=== PATIENT | male | born 1960 | race Caucasian/White ===

== ENCOUNTER 2018-03-17 14:18 | Inpatient (IN) | payer OTHER ==
--- NOTE | 2018-03-17 15:13 | ED ---
Abdominal Pain/Male - HPI Summary HPI Summary: Pt is a 57 y/o M presenting to the ED with a chief complaint of abd pain in the RUQ onset about 2 weeks ago. The pt denies vomiting, diarrhea, hematuria, chest pain, or current heart problems. The pt reports mild constipation. The pt smokes cigars, drinks 6-8 cups of coffee a day, and does not drink alcohol. - History of Current Complaint Chief Complaint: EDAbdPain Stated Complaint: CHEST PAIN Time Seen by Provider: 03/17/18 14:53 Hx Obtained From: Patient Onset/Duration: Gradual Onset, Lasting Weeks, Still Present Timing: Constant Severity Initially: Mild Severity Currently: Mild Pain Intensity: 2 Pain Scale Used: 0-10 Numeric Location: Discrete At: RUQ Radiates: Yes Radiates to: Chest Character: Cramping Aggravating Factor(s): Nothing Alleviating Factor(s): Nothing Associated Signs And Symptoms: Positive: Constipation. Negative: Chest Pain, Urinary Symptoms, Vomiting, Diarrhea - Allergies/Home Medications Allergies/Adverse Reactions: Allergies Allergy/AdvReac Type Severity Reaction Status Date / Time morphine Allergy Rash Verified 03/17/18 14:33 Home Medications: Home Medications Atorvastatin* [Lipitor*] 80 mg PO 1700 03/17/18 [History Confirmed 03/17/18] metFORMIN* [Glucophage 1000 MG TAB *] 1,000 mg PO BID 03/17/18 [History Confirmed 03/17/18] PMH/Surg Hx/FS Hx/Imm Hx Previously Healthy: No Endocrine/Hematology History: Reports: Hx Diabetes Cardiovascular History: Reports: Hx Hypercholesterolemia, Hx Hypertension - not taking medication currently Respiratory History: Denies: Other Respiratory Problems/Disorders Musculoskeletal History: Reports: Hx Back Problems - chronic back pain Sensory History: Reports: Hx Contacts or Glasses Opthamlomology History: Reports: Hx Contacts or Glasses - Surgical History Surgery Procedure, Year, and Place: 4 back surgeries. arm surgery Infectious Disease History: No Infectious Disease History: Reports: History Other Infectious Disease Denies: Traveled Outside the [place] in Last 30 Days - Family History Known Family History: Negative: Hypertension, Renal Disease - Social History Alcohol Use: None Substance Use Type: Reports: None Substance Use Comment - Amount & Last Used: hydrocodone Smoking Status (MU): Current Every Day Smoker Type: Cigars Amount Used/How Often: 5 cigars per day Have You Smoked in the Last Year: Yes Review of Systems Negative: Fever Negative: Chest Pain Positive: Other - constipation. Negative: Vomiting, Diarrhea Negative: hematuria All Other Systems Reviewed And Are Negative: Yes Physical Exam - Summary Physical Exam Summary: Appearance: Well appearing, no pain distress Skin: warm, dry, reflects adequate perfusion Head/face: normal Eyes: EOMI, DUNG ENT: normal Neck: supple, non-tender Respiratory: CTA, breath sounds present Cardiovascular: RRR, pulses symmetrical Abdomen: RUQ tenderness Musculoskeletal: normal, strength/ROM intact Neuro: normal, sensory motor intact, A&Ox3 Triage Information Reviewed: Yes Vital Signs On Initial Exam: Initial Vitals Temp Pulse Resp BP Pulse Ox 97.5 F 104 16 173/96 97 03/17/18 14:28 03/17/18 14:28 03/17/18 14:28 03/17/18 14:28 03/17/18 14:28 Vital Signs Reviewed: Yes Diagnostics - Vital Signs Vital Signs Temp Pulse Resp BP Pulse Ox 03/17/18 14:28 97.5 F 104 16 173/96 97 - Laboratory Result Diagrams: 03/17/18 14:36 03/17/18 14:36 Lab Statement: Any lab studies that have been ordered have been reviewed, and results considered in the medical decision making process. - Radiology Chest x-ray Radiology Interpretation Completed By: Radiologist Summary of Radiographic Findings: No active cardiopulmonary disease. ED physician has reviewed this report. - EKG 1507 Cardiac Rate: NL - 96bpm EKG Rhythm: Sinus Rhythm ST Segment: Normal Ectopy: None Abdominal Pain Fem Course/Dx - Course Course Of Treatment: Pt is a 57 y/o M presenting to the ED with a chief complaint of abd pain in the RUQ onset about 2 weeks ago. The pt denies vomiting , diarrhea, hematuria, chest pain, or current heart problems. The pt reports mild constipation. The pt smokes cigars, drinks 6-8 cups of coffee a day, and does not drink alcohol. Bloodwork/UA obtained. Chest x-ray reveals no active cardiopulmonary disease. Ultrasound of gallbladder reveals "HEPATOMEGALY. MULTIPLE SMALL GALLBLADDER WALL POLYPS." . EKG shows NSR at 96bpm. Patient will by admitted to Dr. Lyons, hospitalist, at 1607. Additionally Dr. Blanchard, cardiology, was contacted at 1615, He has agreed to come see the patient. - Diagnoses Differential Diagnosis/HQI/PQRI: ACS, AMI, Gall Bladder Disease, Ureteral Stone Provider Diagnoses: ACS (acute coronary syndrome), Non-STEMI (non-ST elevated myocardial infarction ) - Provider Notifications Discussed Care Of Patient With: Melecio Lynos - hospitalist Time Discussed With Above Provider: 16:07 Instructed by Provider To: Admit As Inpatient - Critical Care Time Critical Care Time: 30-74 min Discharge - Sign-Out/Discharge Documenting (check all that apply): Patient Departure - admit - Discharge Plan Condition: Stable Disposition: ADMITTED TO [facility] - Billing Disposition and Condition Condition: STABLE Disposition: Admitted to [facility] - Attestation Statements Document Initiated by Scribe: Yes Documenting Scribe: Keisha Baptitse Provider For Whom Elizabeth is Documenting (Include Credential): Roberto Carlos Vinson MD. Scribe Attestation: Keisha Hensley, scribed for Roberto Carlos Vinson MD. on 03/17/18 at 1709. Scribe Documentation Reviewed: Yes Provider Attestation: The documentation as recorded by the scribeKeisha accurately reflects the service I personally performed and the decisions made by Roberto Carlos schreiber MD. Status of Scribe Document: Viewed
[2018-03-17 15:35] LABS: ABS Basophils 0.1 10^3/ul (0-0.2); ABS Eosinophils 0.1 10^3/ul (0-0.6); ABS Lymphocytes 1.4 10^3/ul (1.0-4.8); ABS Monocytes 0.6 10^3/ul (0-0.8); ABS Neutrophils 7.7 10^3/ul (1.5-7.7); ABS Nucleated RBC 0 10^3/ul; Hematocrit 49 % (42-52); Hemoglobin 17.1 g/dl (14.0-18.0); Lymphocyte % 14.3 %; Mean Corpuscular HGB Conc 35 g/dl (31-36); Mean Corpuscular Hemoglobin 32 pg (27-31); Mean Corpuscular Volume 92 fL (80-94); Mean Platelet Volume 8.1 fL (7.4-10.4); Nucleated Red Blood Cells % 0; Platelet Count 251 10^3/ul (150-450); Red Blood Count 5.34 10^6/ul (4.00-5.40); Red Cell Distribution Width 14 % (10.5-15); White Blood Count 9.9 10^3/ul (3.5-10.8)
[2018-03-17 15:45] LABS: Activated Partial Thrombo Time 31.5 seconds (26.0-36.3); INR 0.89 (0.77-1.02)
[2018-03-17 15:52] LABS: Albumin 3.4 g/dL (3.2-5.2); BUN/Creatinine Ratio 13.2 (8-20); Calcium 8.8 mg/dL (8.6-10.3); Globulin 3.3 g/dL (2-4); Potassium 3.9 mmol/L (3.5-5.0); Total Bilirubin 0.4 mg/dL (0.2-1.0); Total Protein 6.7 g/dL (6.4-8.9)
[2018-03-17] MEDS ORDERED: Aspirin 81 mg CHEW TAB* 81 MG TAB.CHEW ONE (16:04)
[2018-03-17] MEDS ORDERED: Aspirin 81 mg CHEW TAB* 81 MG TAB.CHEW PO ONE (16:05)
[2018-03-17] MEDS ORDERED: Heparin for STEMI(*) 5,000 UNITS/ML 1 ML VIAL IV ONE ×2 (16:05→16:27)
[2018-03-17] MEDS ORDERED: Heparin DRIP 25,000 UNITS(*) 25,000 UNITS/500 ML BAG ONE (16:27)
[2018-03-17] MEDS: Heparin VIAL(*) 5000 UNITS/ML VIAL (FIVE THOUSAND) IV SCH ×2 (16:29→22:58)
[2018-03-17] MEDS: Heparin DRIP 25,000 UNITS(*) 25,000 UNITS/500 ML BAG IV SCH (16:30)
[2018-03-17] MEDS ORDERED: Dextrose 50% Syringe 50 ML* 25 GM/50 ML SYRINGE IV PUSH PRN (16:51)
--- NOTE | 2018-03-17 17:00 | ADMNOTE ---
Subjective Date of Service: 03/17/18 Interval History: HISTORY & PHYSICAL: CC: epigastric pain HPI: patient is 57 year old man w/ diabetes type 2, HTN, HLD, who has had intermittent epigastric pain for 2 weeks. The pain can be severe, mainly occurs at night, worse with eating. He denies exertional abdominal or chest pain. Denies N/V, no palpitations. Pain was very severe last night, led him to come to ER. Pain not responding to Tums, colace. A hot bath seems to relieve pain. Pain is subxyphoid, radiates across abdomen bilat. No radiation to neck/arms. The pain feels like a cramp. Family History: Findings - Father of lung cancer, mother alive w/ diabetes , grandmother had CHF. 4 siblings [place] Social History: Findings - Disabled counseling specialist, , 4 children, smokes 3-4 packs cigarillos/day, no alcohol or drug use. Past Medical History: Findings - Type 2 diabetes, HTN, HLD, micro-hematuria, PSH : lumbar surgery X4 Review of Systems - Measurements Intake and Output: Intake and Output Last 24 Hours 03/15/18 03/16/18 03/17/18 03/18/18 06:59 06:59 06:59 06:59 Weight 95.254 kg - Review of Systems Constitutional Symptoms: Positive: Weight Loss Negative: Fatigue Dermatology: Positive: Normal HEENT: Positive: Normal Eyes: Positive: Normal Thyroid: Positive: Normal Pulmonary: Positive: Normal Negative: Wheezing, Respiratory Distress Cardiology: Positive: Chest Pain Negative: Shortness of Breath, Palpitations, Swelling of Ankles, Edema, Syncope, Proximal NocturnalDyspnea Gastroenterology: Positive: Abdominal Pain, Indigestion, Heartburn Negative: Nausea, Vomiting, Diarrhea, Blood in Stools, Change in Bowel Habits , Melena Genital - Urinary: Positive: Hematuria Negative: Dysuria, Nocturia Genitourinary - Male: Negative: Prostatism Musculoskeletal: Negative: Joint Pain Endocrinology: Positive: Diabetes Mellitus Negative: Thyroid Problems, Hyperglycemia, Diabetic Foot Ulcers Hematologic/Lymphatic: Negative: Anemia, Easy Brusing Neurology: Positive: Normal Psychiatry: Positive: Normal Allergic/Immunologic: Negative: Swollen Glands LymphNodes Objective Active Medications: Home Meds: Lipitor 80mg qpm metformin 1000 mg po BID blood pressure medication - not taking Inpatient meds: Aspirin (Ecotrin Ec Tab*) 325 mg PO DAILY [facility] Atorvastatin Calcium (Lipitor*) 80 mg PO 1700 [facility] Dextrose (D50w Syringe 50 Ml*) 12.5 gm IV PUSH .FOR FS < 60 - SS PRN PRN Reason: FS < 60 Heparin Sodium (Porcine) (Heparin Vial(*)) 0 units IV .PER PROTOCOL [facility] Insulin Human Lispro (Humalog*) 0 units SUBCUT ACHS [facility]; Protocol Vital Signs - 8 hr 03/17/18 03/17/18 03/17/18 14:28 15:00 15:01 Temperature 36.4 C Pulse Rate 104 107 96 Respiratory 16 Rate Blood Pressure 173/96 176/106 (mmHg) O2 Sat by Pulse 97 97 97 Oximetry 03/17/18 03/17/18 03/17/18 15:02 15:57 16:00 Temperature Pulse Rate 104 93 96 Respiratory 15 25 17 Rate Blood Pressure 195/119 158/88 156/96 (mmHg) O2 Sat by Pulse 97 95 94 Oximetry 03/17/18 03/17/18 03/17/18 16:01 16:31 16:39 Temperature 36.4 C Pulse Rate 95 97 87 Respiratory 18 19 22 Rate Blood Pressure 172/104 172/104 (mmHg) O2 Sat by Pulse 94 94 96 Oximetry Oxygen Devices in Use Now: None Appearance: alert, no distress Eyes: No Scleral Icterus Ears/Nose/Mouth/Throat: NL Teeth, Lips, Gums Neck: NL Appearance and Movements; NL JVP Respiratory: Symmetrical Chest Expansion and Respiratory Effort Cardiovascular: NL Sounds; No Murmurs; No JVD Abdominal: NL Sounds; No Tenderness; No Distention, No Hepatosplenomegaly, - - subjective tenderness epigastric Lymphatic: No Cervical Adenopathy Extremities: No Edema Skin: No Rash or Ulcers Neurological: Alert and Oriented x 3 Lines/Tubes/Other Access: Clean, Dry and Intact Peripheral IV Nutrition: Taking PO's Result Diagrams: 03/17/18 14:36 03/17/18 14:36 Additional Lab and Data: Laboratory Tests 03/17/18 03/17/18 14:36 14:36 INR (Anticoag Therapy) 0.89 APTT 31.5 Calcium 8.8 Total Bilirubin 0.40 AST 11 L ALT 11 Troponin I 0.24 H* Total Protein 6.7 Lipase 58 Diagnostic Imaging: CXR: no infiltrates/effusions GB Ultrasound: GB polyps, no stones EKG Data: EKG: normal sinus rhythm, normal axis, borderline LAE, no ST/T-wave changes Assess/Plan/Problems-Billing Assessment: 57 year old man presenting with epigastric pain, elevated troponin, concern for non-ST elevation ND. - Patient Problems (1) Non-STEMI (non-ST elevated myocardial infarction) Current Visit: Yes Status: Acute Priority: High Code(s): I21.4 - NON-ST ELEVATION (NSTEMI) MYOCARDIAL INFARCTION SNOMED Code(s): 35552525 Comment: -Has has aspirin and heparin drip initiated in ER. -Will discuss plavix load vs Effient with Dr. Betancourt. -Troponins repeated q3h -Monitor in CCU, due to risk of arrhythmia -May need invasive strategy, if rules in for ND. (2) Hypertension Current Visit: Yes Status: Chronic Priority: Medium Code(s): I10 - ESSENTIAL (PRIMARY) HYPERTENSION SNOMED Code(s): 69351071 Comment: -HTN severe, uncontrolled -Will start PO metoprolol, give doses IV also if needed. -May benefit from MAR, but creatinine acutely elevated. (3) Acute kidney injury (nontraumatic) Current Visit: Yes Status: Acute Priority: Medium Code(s): N17.9 - ACUTE KIDNEY FAILURE, UNSPECIFIED SNOMED Code(s): 683947024730853 Comment: -Creatinine 1.4 at baseline, now 1.9. -May have been started on MAR or ARB as outpatient, will hold and monitor -Recheck creatinine in AM, would be at risk of further RAFAEL if given cath/dye. (4) Type 2 diabetes mellitus Current Visit: Yes Status: Chronic Priority: Medium Comment: -Will check A1c to assess control -Hold metformin due to likelihood of cardiac cath -Follow finger-stick glucose, cover w/ sliding scale humalog (5) DVT prophylaxis Current Visit: Yes Status: Suspected Priority: Low Code(s): ALH7535 - SNOMED Code(s): 015470695 Comment: on IV heparin
[2018-03-17] MEDS ORDERED: Metoprolol Tartrate IV* 1 MG/ML 5 ML VIAL IV PRN (17:04)
[2018-03-17] MEDS: Metoprolol Tartrate TAB* 25 MG PO SCH (17:40)
[2018-03-17] MEDS: Atorvastatin* 80 MG TAB PO SCH (17:40)
--- NOTE | 2018-03-17 20:13 | CONS ---
CC: Hospitalist Service; Dr. Betancourt; Dr. March CARDIOLOGY CONSULTATION: DATE OF CONSULT: 03/17/18 HISTORY OF PRESENT ILLNESS: I was asked by hospitalist service to see this 57-year- old male patient , who presented to the emergency room with 2 weeks' duration of abdominal pain, epigastric pain. Fur ther evaluation with the troponin came in abnormal and the initial level was 0.24. The patient had n o symptoms of chest pain. The patient does have risk factors for CAD; smoking a cigar; systemic geetha rial hypertension, although he does not take medications; diabetes, he is on metformin; obesity; hype rlipidemia. He states for 2 weeks, he has been having all abdominal pain all through his abdomen as well as epigastric pain, and also usually when he drinks or eats some food, most of the time, he star ts to get the abdominal pain. He has been having some also constipation. His EKG did not show any s ignificant ST elevations or ST depressions. He is chest pain free. He gives no nausea, no vomiting, no hematochezia, no fever, no chills, no skin rash, no tremors, no palpitations, no swelling in the lower extremities is appreciated. PAST MEDICAL HISTORY: Includes a history of systemic arterial hypertension with his blood pressure i n the emergency room is significantly elevated, diabetes mellitus, hyperlipidemia. PAST SURGICAL HISTORY: Three surgeries for his back for herniated disk. MEDICATIONS: His medications as inpatient include: 1. Aspirin 325 mg daily. 2. Lipitor 80 mg daily. 3. Heparin IV according to the protocol. 4. Humalog daily. 5. Lopressor 25 mg q.8 hours and Lopressor 5 mg IV q.6 hours for blood pressure if it is significant ly elevated. ALLERGIES: He said he is allergic to PENICILLIN giving him actually hives. FAMILY HISTORY: He is . He has 4 kids doing well. There is no family history of premature C AD. SOCIAL HISTORY: He gives no history of cigarettes. He smokes cigar. No alcohol or drug abuse. REVIEW OF SYSTEMS: Review of all other systems essentially is negative. PHYSICAL EXAM: On exam, he is awake, alert, and oriented. He has no symptoms of chest pain. His bl ood pressure initially is 172/104; pulse 87, he is in sinus rhythm; respiratory rate 20, temperature 97.5. Head and Neck Exam: Normocephalic, atraumatic head. Ears, Nose, and Throat: Essentially екатерина ign. Neck: Supple. JVP is not elevated. No carotid bruit. No masses in the neck are appreciated. Chest: Clear to auscultation. No rales, no wheeze, no added sounds appreciated. Heart: Normal. S 1 and S2. No added sounds, no gallops, no rubs. Abdomen: Benign, soft. Positive bowel sounds. Ext remities: No edema, no cyanosis, no clubbing. Skin exam is normal. Psych: Normal affect and mood. NOTE KEEPER: No focal deficits appreciated. DIAGNOSTIC STUDIES/LAB DATA: White blood cell 9.9, hemoglobin 17.1, hematocrit 49, and platelets 251 . Chemistry: Sodium 136, potassium 3.9, chloride 108, BUN 25, creatinine 1.90. LFTs normal. Tropo josé 0.24. Protein is normal. Lipase is normal. His gallbladder ultrasound showed multiple gallbladder wall polyps and hepatomegaly. His chest x-ray was reported to have no active cardiopulmonary disease. His EKG, normal sinus rhythm, poor R-wave progression, nonspecific T abnormality. IMPRESSION: The patient is a 57-year-old male patient with: 1. Presentation with 2 weeks' duration of abdominal pain of unclear etiology. 2. Abnormal troponin. This could be acute coronary syndrome, although he had no significant chest p ain. 3. Systemic arterial hypertension. His blood pressure is elevated. 4. Diabetes mellitus. 5. Hyperlipidemia. 6. Obesity. 7. Smoking cigar. PLAN/RECOMMENDATIONS: The patient does have significant comorbidities and risk factors. I agree wit h admitting him and observing him very closely with troponins and EKG. I have discussed him with Dr. Lyons from the hospitalist service. I agree with beta-spike, aspirin, heparin, and statin. Any fu rther recommendations would be pending his clinical outcome. Definitely, an echocardiogram will be h elpful to evaluate his left ventricular systolic function, wall motion, and valvular disease. Pending his evaluation with EKG, troponin and symptoms, a stress test might be helpful to risk stratify him or a cardiac catheterization all depending on his clinical course. I answered all his concerns and q uestions up to his satisfaction. Thank you very much for asking us to participate in the care of this patient. [id number]/[facility] #: [id number]
[2018-03-17] MEDS: Insulin LISPRO* 1 UNITS UNIT SUBCUT SCH (22:06)
[2018-03-18] MEDS ORDERED: Acetaminophen TAB* 325 MG PO PRN (00:30)
[2018-03-18] MEDS: Metoprolol Tartrate TAB* 25 MG PO SCH ×3 (02:37→17:14)
[2018-03-18 05:48] LABS: Calcium 8.7 mg/dL (8.6-10.3); EGFR Non-African American 38.1 (>60); Potassium 3.8 mmol/L (3.5-5.0)
[2018-03-18 06:19] LABS: ABS Basophils 0.1 10^3/ul (0-0.2); ABS Eosinophils 0.2 10^3/ul (0-0.6); ABS Lymphocytes 2.1 10^3/ul (1.0-4.8); ABS Monocytes 0.7 10^3/ul (0-0.8); ABS Neutrophils 5.3 10^3/ul (1.5-7.7); ABS Nucleated RBC 0 10^3/ul; Eosinophil % 2.5 %; Hematocrit 46 % (42-52); Hemoglobin 15.7 g/dl (14.0-18.0); Lymphocyte % 24.8 %; Mean Corpuscular HGB Conc 34 g/dl (31-36); Mean Corpuscular Hemoglobin 32 pg (27-31); Mean Corpuscular Volume 93 fL (80-94); Mean Platelet Volume 8.4 fL (7.4-10.4); Nucleated Red Blood Cells % 0; Platelet Count 252 10^3/ul (150-450); Red Blood Count 4.97 10^6/ul (4.00-5.40); Red Cell Distribution Width 14 % (10.5-15); White Blood Count 8.3 10^3/ul (3.5-10.8)
--- NOTE | 2018-03-18 09:25 | PN ---
Subjective Date of Service: 03/18/18 Interval History: Patient has had no chest or abdominal pain overnight. No arrhythmias on monitor. He wants to go home, because he has an estate auction next weekend, needs to move furniture. Family History: Unchanged from Admission - Father of lung cancer, mother alive w/ diabetes, grandmother had CHF. 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 Past Medical History: Unchanged from Admission - Type 2 diabetes, HTN, HLD, micro-hematuria, PSH: lumbar surgery X4 Objective Active Medications: Acetaminophen (Tylenol Tab*) 650 mg PO Q6H PRN PRN Reason: pain/fever Last Admin: 03/18/18 00:38 Dose: 650 mg Aspirin (Ecotrin Ec Tab*) 325 mg PO DAILY [facility] Atorvastatin Calcium (Lipitor*) 80 mg PO 1700 [facility] Last Admin: 03/17/18 17:40 Dose: 80 mg Dextrose (D50w Syringe 50 Ml*) 12.5 gm IV PUSH .FOR FS < 60 - SS PRN PRN Reason: FS < 60 Heparin Sodium (Porcine) (Heparin Vial(*)) 0 units IV .PER PROTOCOL [facility] Last Admin: 03/17/18 22:58 Dose: 4,000 units Heparin Sodium/Dextrose (Heparin Drip 25,000 Units(*)) 25,000 units in 500 mls @ 0 mls/hr IV PER RATE [facility]; Protocol Last Admin: 03/17/18 16:30 Dose: 20 mls/hr Insulin Human Lispro (Humalog*) 0 units SUBCUT ACHS [facility]; Protocol Last Admin: 03/17/18 22:06 Dose: Not Given Metoprolol Tartrate (Lopressor Iv*) 5 mg IV Q6H PRN PRN Reason: BLOOD PRESSURE Metoprolol Tartrate (Lopressor Tab*) 25 mg PO Q8H [facility] Last Admin: 03/18/18 02:37 Dose: 25 mg Vital Signs - 8 hr 03/18/18 03/18/18 03/18/18 04:00 05:00 06:00 Temperature 36.1 C Pulse Rate 62 69 64 Respiratory 16 19 21 Rate Blood Pressure 139/84 132/75 152/83 (mmHg) O2 Sat by Pulse 96 95 96 Oximetry 03/18/18 03/18/18 03/18/18 07:00 08:00 08:01 Temperature 37.0 C Pulse Rate 69 72 70 Respiratory 15 23 20 Rate Blood Pressure 154/83 141/82 (mmHg) O2 Sat by Pulse 95 95 96 Oximetry Oxygen Devices in Use Now: None Appearance: no distress Eyes: No Scleral Icterus Ears/Nose/Mouth/Throat: Clear Oropharnyx Neck: Trachea Midline, No Thyroid Enlargement, Masses Respiratory: Symmetrical Chest Expansion and Respiratory Effort, Clear to Auscultation Cardiovascular: NL Sounds; No Murmurs; No JVD, RRR Abdominal: NL Sounds; No Tenderness; No Distention Lymphatic: No Cervical Adenopathy Extremities: No Edema Neurological: Alert and Oriented x 3 Lines/Tubes/Other Access: Clean, Dry and Intact Peripheral IV Nutrition: Taking PO's Result Diagrams: 03/18/18 05:15 03/18/18 05:15 Additional Lab and Data: Laboratory Tests 03/17/18 03/17/18 03/17/18 20:04 22:10 23:00 APTT 38.5 H Troponin I 0.03 0.06 H* 03/18/18 03/18/18 03/18/18 01:55 05:15 05:15 APTT 52.2 H Troponin I 0.09 H* 0.11 H* Microbiology and Other Data: Microbiology 03/17/18 17:30 Nasal Screen MRSA (PCR) - Final Nasal Mrsa Not Detected 03/17/18 16:55 Stool Occult Blood (HIRAM) - Final Stool EKG Data: repeat EKG: normal sinus rhythm, minimal ST elevation V1-2, ?Jpoint Assess/Plan/Problems-Billing Assessment: 57 year old man presenting with epigastric pain, elevated troponin, concern for non-ST elevation IA. - Patient Problems (1) Non-STEMI (non-ST elevated myocardial infarction) Current Visit: Yes Status: Acute Priority: High Code(s): I21.4 - NON-ST ELEVATION (NSTEMI) MYOCARDIAL INFARCTION SNOMED Code(s): 42680917 Comment: -Continue aspirin and heparin drip -Troponin dropped then now elevated again, will trend -Continue monitor in CCU, due to risk of arrhythmia -Will discuss invasive strategy vs stress test w/ Dr. Betancourt (2) Hypertension Current Visit: Yes Status: Chronic Priority: Medium Code(s): I10 - ESSENTIAL (PRIMARY) HYPERTENSION SNOMED Code(s): 91964189 Comment: -HTN severe, now controlled w/ PO metoprolol -Wouldbenefit from MAR due to DM, but creatinine elevated. (3) Acute kidney injury (nontraumatic) Current Visit: Yes Status: Acute Priority: Medium Code(s): N17.9 - ACUTE KIDNEY FAILURE, UNSPECIFIED SNOMED Code(s): 167191286601363 Comment: -Creatinine 1.4 at baseline, improved a bit from admission (4) Type 2 diabetes mellitus Current Visit: Yes Status: Chronic Priority: Medium Comment: -A1c pending -metformin on hold due to likelihood of cardiac cath -Follow finger-stick glucose, cover w/ sliding scale humalog (5) DVT prophylaxis Current Visit: Yes Status: Suspected Priority: Low Code(s): ILZ1392 - SNOMED Code(s): 731556088 Comment: on IV heparin
[2018-03-18] MEDS: Aspirin EC TAB* 325 MG PO SCH (09:56)
[2018-03-18] MEDS: Insulin LISPRO* 1 UNITS UNIT SUBCUT SCH ×4 (09:56→20:35)
[2018-03-18] MEDS: Heparin VIAL(*) 5000 UNITS/ML VIAL (FIVE THOUSAND) IV SCH (12:15)
[2018-03-18] MEDS: Heparin DRIP 25,000 UNITS(*) 25,000 UNITS/500 ML BAG IV SCH (12:18)
[2018-03-18] MEDS: Atorvastatin* 80 MG TAB PO SCH (17:14)
[2018-03-19] MEDS: Metoprolol Tartrate TAB* 25 MG PO SCH ×2 (01:44→14:05)
[2018-03-19] MEDS: Heparin DRIP 25,000 UNITS(*) 25,000 UNITS/500 ML BAG IV SCH (05:07)
[2018-03-19 06:31] LABS: ABS Basophils 0.1 10^3/ul (0-0.2); ABS Eosinophils 0.2 10^3/ul (0-0.6); ABS Lymphocytes 1.6 10^3/ul (1.0-4.8); ABS Monocytes 0.5 10^3/ul (0-0.8); ABS Neutrophils 4.4 10^3/ul (1.5-7.7); ABS Nucleated RBC 0 10^3/ul; Eosinophil % 3.1 %; Hematocrit 45 % (42-52); Hemoglobin 15.1 g/dl (14.0-18.0); Lymphocyte % 23.9 %; Mean Corpuscular HGB Conc 34 g/dl (31-36); Mean Corpuscular Hemoglobin 32 pg (27-31); Mean Corpuscular Volume 93 fL (80-94); Mean Platelet Volume 8.6 fL (7.4-10.4); Nucleated Red Blood Cells % 0; Platelet Count 209 10^3/ul (150-450); Red Blood Count 4.79 10^6/ul (4.00-5.40); Red Cell Distribution Width 13 % (10.5-15); White Blood Count 6.8 10^3/ul (3.5-10.8)
[2018-03-19 06:49] LABS: EGFR Non-African American 39.9 (>60)
[2018-03-19] MEDS: Insulin LISPRO* 1 UNITS UNIT SUBCUT SCH ×2 (08:08→14:05)
[2018-03-19] MEDS ORDERED: Regadenoson* 0.4 MG/5 ML SYRINGE ONE (10:53)
[2018-03-19] MEDS ORDERED: Aminophylline IV* 25 MG/ML 10 ML VIAL ONE (11:13)
[2018-03-19] MEDS: Aspirin EC TAB* 325 MG PO SCH (14:05)
[2018-03-19 16:24] VITALS: BP 146/75
--- NOTE | 2018-03-19 20:44 | DS ---
CC: Dr. March, [facility]; Dr. Betancourt * DISCHARGE SUMMARY: DATE OF ADMISSION: 03/17/18 DATE OF DISCHARGE: 03/19/18 PRIMARY DIAGNOSIS: Suspected acute coronary syndrome with mildly elevated troponin. SECONDARY DIAGNOSES: 1. Hypertension. 2. Type 2 diabetes. 3. Hyperlipidemia. 4. Chronic kidney disease. 5. Tobacco abuse. 6. History of microscopic hematuria. MEDICATIONS ON DISCHARGE: 1. Atorvastatin 80 mg p.o. q.h.s. 2. Metformin 1000 mg p.o. b.i.d. 3. Aspirin 325 mg p.o. daily. 4. Toprol XL 75 mg p.o. daily. 5. NicoDerm patch 40 mg topically daily. HOSPITAL COURSE: This 57-year-old man was admitted with 2 weeks of intermittent episodes of epigastric subxiphoid pain that was worse with eating and worse at night, nonexertional. This pain was not responsive to TUMS. The patient came to the emergency department because the pain was significantly worse the night prior to admission. His initial EKG showed normal sinus rhythm , normal axis, borderline left atrial enlargement, no ST or T wave changes to suggest ischemia. Repeat EKGs were similar. Initial troponin was 0.24, but this mysteriously dropped to 0.1 and 0.3 the next 2 times it was checked. Subsequent troponin again peaked at 0.11 and fell to 0.08 on the . Because of a concern about acute coronary syndrome, the patient was admitted to the cardiac care unit, placed on aspirin, beta blockers, and IV heparin. His heparin was therapeutic for most of day 2 and 3 of the hospital stay. The patient was seen in consultation by Dr. Betancourt of Cardiology who shared a concern for acute coronary syndrome. The patient had a nuclear stress test on the day of discharge that was intermediate risk with a possible small area of ischemia at the apex of the heart and a reported ejection fraction of 46%. The patient did exercise for 8 minutes on the treadmill and did not have any chest pain or ST changes during the stress test. This case was discussed extensively with Cardiology and it was felt that patient is at low risk of subsequent ischemic events given his good performance status. It was felt that with quitting smoking, taking an aspirin a day, and taking beta blockers, he will have less episodes of angina, if in fact this abdominal pain is a form of inferior wall angina. Other issues during the hospital stay, the patient's creatinine was 1.9 on admission, it fell to 1.78 on discharge. Previous creatinine was 1.4 on February 2013. It appears the patient has chronic renal disease with a new baseline. The patient also has type 2 diabetes and his metformin was held due to possibility of cardiac catheterization. His sugars ranged between 158 and 202 during the hospital stay. The patient is advised to see his primary care doctor within a week for followup. He was advised to see Dr. Betancourt within 2 weeks for followup as well. DIET: Should be diabetic, low salt. ACTIVITY: Should be as tolerated with no heavy lifting. He is advised to cease smoking altogether and he is given patches to help him relieve his cravings. [id number]/[facility] #: [id number] [place]
== END 2018-03-19 17:02 | disposition home or self-care (01) | DRG 198 ==
LOC: ED 14:18 → ICU 16:19 → MEDTELE 03-18 14:00
PROVIDERS: ADMIT Internal Medicine; ATTEND Internal Medicine
DX: I24.9 Acute ischemic heart disease, unspecified (principal); N17.9 Acute kidney failure, unspecified; I13.10 Hypertensive heart and chronic kidney disease without heart failure, with stage 1 through stage 4 chronic kidney disease, or unspecified chronic kidney disease; N18.9 Chronic kidney disease, unspecified; E11.22 Type 2 diabetes mellitus with diabetic chronic kidney disease; R31.9 Hematuria, unspecified; E78.5 Hyperlipidemia, unspecified; F17.210 Nicotine dependence, cigarettes, uncomplicated; R74.8 Abnormal levels of other serum enzymes; Z80.1 Family history of malignant neoplasm of trachea, bronchus and lung; Z83.3 Family history of diabetes mellitus; Z82.49 Family history of ischemic heart disease and other diseases of the circulatory system; Z88.0 Allergy status to penicillin; Z79.84 Long term (current) use of oral hypoglycemic drugs; Z79.899 Other long term (current) drug therapy
CPT/HCPCS: 36415; 71046; 76705; 78452; 80048; 80053; 82272; 82565; 83036; 83690; 84484; 84520; 85025; 85610; 85730; 87641; 93005; 93017; 99283; A9270-GY; A9502; J0280; J1644; J2785